=== PATIENT | male | born 1960 | race Caucasian/White ===

== ENCOUNTER 2017-02-19 19:10 | Emergency (ER) | payer SELFPAY ==
[~2017-02-19] VITALS: Ht 175.3 cm; Wt 53.9 kg
[2017-02-19 19:29] VITALS: BP 121/78; PULSE 101; RESP 20; TEMP 98.2; O2SAT 100
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
[2017-02-19] MEDS ORDERED: DIPH25CA PO (19:36)
[2017-02-19] MEDS ORDERED: BACT800T5 PO (19:36)
== END 2017-02-19 19:50 | disposition home or self-care (01) ==
LOC: PHEFT 19:10
DX: S00.262A Insect bite (nonvenomous) of left eyelid and periocular area, initial encounter (principal); W57.XXXA Bitten or stung by nonvenomous insect and other nonvenomous arthropods, initial encounter; Y92.89 Other specified places as the place of occurrence of the external cause; Z72.0 Tobacco use; Z88.0 Allergy status to penicillin
CPT/HCPCS: 99283